=== PATIENT | female | born 1985 | race Two or more races ===

== ENCOUNTER 2017-04-19 00:34 | Emergency (ER) | payer MEDICAID, OTHER ==
[~2017-04-19] VITALS: Ht 157.5 cm; Wt 69.4 kg
[2017-04-19 00:58] VITALS: BP 113/84
[2017-04-19] MEDS ORDERED: KETOROLAC TROMETH 60MG/2ML VIAL IM ONE (02:15)
[2017-04-19] MEDS ORDERED: IBUPROFEN 600 MG TAB PO ONE (02:30)
[2017-04-19] MEDS ORDERED: CYCLOBENZAPRINE HCL 10 MG TAB PO ONE (02:30)
== END 2017-04-19 03:32 | disposition home or self-care (01) ==
LOC: ER 00:38
DX: S33.5XXA Sprain of ligaments of lumbar spine, initial encounter (principal); M79.1 Myalgia; X50.9XXA Other and unspecified overexertion or strenuous movements or postures, initial encounter; Y93.89 Activity, other specified; Y92.89 Other specified places as the place of occurrence of the external cause; Y99.8 Other external cause status
CPT/HCPCS: 72131; 81025; 96372

== ENCOUNTER 2017-05-14 02:57 | Emergency (ER) | payer OTHER ==
[~2017-05-14] VITALS: Ht 157.5 cm; Wt 70.8 kg
[2017-05-14] MEDS: LIDOCAINE VISCOUS 2% 15ML UD PO ONE (05:13)
[2017-05-14] MEDS: ALUM & MAG HYDROX-SIMETH LIQ(MAALOX) 30 ML PO ONE (05:13)
[2017-05-14] MEDS: DEXAMETHASONE 4 MG TAB PO ONE (05:13)
[2017-05-14] MEDS: FAMOTIDINE 20 MG TAB PO ONE (05:13)
[2017-05-14] MEDS: diphenhdrAMINE HCL 25 MG CAP PO ONE (05:13)
[2017-05-14 05:15] VITALS: BP 118/52
== END 2017-05-14 06:30 | disposition home or self-care (01) ==
LOC: ER 02:58
DX: T78.40XA Allergy, unspecified, initial encounter (principal); Y92.89 Other specified places as the place of occurrence of the external cause
CPT/HCPCS: 99284; J8540

== ENCOUNTER 2017-06-05 10:56 | Emergency (ER) | payer OTHER ==
[~2017-06-05] VITALS: Ht 157.5 cm; Wt 70.3 kg
[2017-06-05 12:07] VITALS: BP 123/75
== END 2017-06-05 14:47 | disposition home or self-care (01) ==
LOC: ER 10:56
DX: O23.41 Unspecified infection of urinary tract in pregnancy, first trimester (principal); Z3A.01 Less than 8 weeks gestation of pregnancy
CPT/HCPCS: 36415; 76801; 84702; 99285; J7030

== ENCOUNTER 2017-09-18 12:20 | Observation (INO) | payer OTHER | END 2017-09-18 13:40 | disposition home or self-care (01) | DRG 566 | LOC: LDRP 12:20 | PROVIDERS: ADMIT Obstetrics & Gynecology; ATTEND Obstetrics & Gynecology | DX: O26.892 Other specified pregnancy related conditions, second trimester (principal); R10.30 Lower abdominal pain, unspecified; Z3A.21 21 weeks gestation of pregnancy | CPT/HCPCS: 59025; 81002; G0378 ==

== ENCOUNTER 2020-07-16 04:34 | Emergency (ER) | payer MEDICAID, OTHER ==
[~2020-07-16] VITALS: Ht 160 cm; Wt 72.6 kg
[2020-07-16 04:36] VITALS: BP 114/83
== END 2020-07-16 06:28 | disposition left against medical advice (07) ==
LOC: ER 04:34
DX: R51.9 Headache, unspecified (principal); Z53.21 Procedure and treatment not carried out due to patient leaving prior to being seen by health care provider

== ENCOUNTER 2023-07-02 13:46 | Inpatient (IN) | payer MEDICAID ==
[~2023-07-02] VITALS: Ht 157.5 cm; Wt 69.0 kg
[2023-07-02 14:14] LABS: Basophils # (auto) 0 10 ^3/uL (0-0.2); Basophils % (auto) 0.6 % (0.0-2.0); Eosinophils # (auto) 0.1 10 ^3/uL (0-0.8); Eosinophils % (auto) 1.7 % (0.0-7.0); Hematocrit 37.2 % (36.0-46.0); Hemoglobin 12.6 g/dL (12.2-16.2); Lymphocytes # (auto) 1.6 10 ^3/uL (0.4-5.4); Lymphocytes % (auto) 26.7 % (10.0-50.0); Mean Corpuscular Hemoglobin 29.1 pg (28.0-32.0); Mean Corpuscular Hgb Conc. 33.8 g/dL (32.0-36.0); Mean Corpuscular Volume 86.3 fL (80.0-100.0); Monocytes # (auto) 0.4 10 ^3/uL (0-1.3); Monocytes % (auto) 6.1 % (0.0-12.0); Neutrophils # (auto) 3.9 10 ^3/uL (1.6-8.6); Neutrophils % (auto) 64.9 % (37.0-80.0); Nucleated Red Blood Cells % 0.1 %; Red Blood Cells 4.31 10^6/uL (4.0-5.20)
[2023-07-02] MEDS: ONDANSETRON ODT 4 MG TAB PO ONE (14:30)
[2023-07-02] MEDS: PANTOPRAZOLE 40 MG TAB PO ONE (14:30)
[2023-07-02 14:36] LABS: Alanine Aminotransferase 11 U/L (7-40); Albumin 4.4 g/dL (3.2-4.8); Alkaline Phosphatase 53 U/L (46-116); Anion Gap 3 (5-15); Aspartate Aminotransferase 13 U/L (13-40); BUN/Creatinine Ratio 14.9 (10.0-20.0); Bilirubin, Total 1.4 mg/dL (0.2-1.0); Blood Urea Nitrogen 11 mg/dL (9-23); Calcium 9.7 mg/dL (8.7-10.4); Carbon Dioxide 29 mmol/L (20-30); Chloride 105 mmol/L (98-107); Glucose 89 mg/dL (74-106); Lipase 31 U/L (12-53); Potassium 4.1 mmol/L (3.5-5.1); Sodium 137 mmol/L (136-145); Total Protein 7.5 g/dL (5.7-8.2)
[2023-07-02 15:16] LABS: Urine Bacteria FEW /hpf (None Seen); Urine Blood TRACE /uL (Negative); Urine Clarity Turbid (Clear); Urine Color Yellow (Yellow); Urine Mucus FEW (None Seen); Urine Protein, UAD 1+ (Negative); Urine Specific Gravity 1.029 (1.001-1.035); Urine Urobilinogen Normal (Negative); Urine WBC 44 /hpf (0 - 5)
[2023-07-02] MEDS: cefTRIAXone 1GM/50ML D5W 50 ML IV ONE (15:40)
[2023-07-02] MEDS ORDERED: HYDROmorphone HCL 2 MG/ML VL/or syr IV PRN (17:45)
[2023-07-02] MEDS: LACTATED RINGER'S 1,000 ML IV ONE (19:51)
[2023-07-02] MEDS: SODIUM CHLOR 0.9% PF (SALINE LOCK) 10ML VIAL/SYR IV SCH (22:00)
[2023-07-03] VITALS (10 sets, daily range): BP systolic 95–136; BP diastolic 54–77; PULSE 66–78; RESP 15–18; TEMP 97.9–98.4; O2SAT 96–100
[2023-07-03] MEDS ORDERED: LEVO100T8 PO (01:26)
[2023-07-03] MEDS: FAMOTIDINE (10MG/ML) 2ML VL IV SCH (09:23)
[2023-07-03] MEDS: ONDANSETRON HCL 4 MG/2 ML VIAL IV PRN (09:23)
[2023-07-03] MEDS: ENOXAPARIN SOD 40 MG/0.4 ML SYRINGE SC SCH (09:23)
[2023-07-03] MEDS: cefTRIAXone 1GM/50ML D5W 50 ML IV SCH (20:24)
[2023-07-03] MEDS: HYDROcodone-ACET 5/325MG TAB PO PRN (21:48)
[2023-07-04] VITALS (8 sets, daily range): BP systolic 92–105; BP diastolic 50–57; PULSE 61–82; RESP 15–19; TEMP 97.7–98.6; O2SAT 96–100
[2023-07-04] MEDS: LEVOTHYROXINE SODIUM 100 MCG TAB PO ONE (10:46)
[2023-07-04] MEDS ORDERED: metroNIDAZOLE 500MG/100ML 100 ML IV SCH (14:00)
[2023-07-04 16:26] LABS: INR 1.06 (0.9-1.15); Partial Thromboplastin Time 26.2 SEC (24.5-34.5); Prothrombin Time 11.2 sec (9.3-11.8)
[2023-07-04] MEDS: SODIUM CHLORIDE 0.9% 1,000 ML IV SCH (16:29)
[2023-07-04] MEDS: ACETAMINOPHEN 325 MG TAB PO PRN (20:44)
[2023-07-04] MEDS: metroNIDAZOLE 500 MG TAB PO SCH (22:31)
[2023-07-05 01:00] VITALS: BP 98/50; PULSE 68; RESP 20; TEMP 98.1; O2SAT 96
[2023-07-05 05:00] VITALS: BP 93/51; PULSE 65; RESP 18; TEMP 98.2; O2SAT 98
[2023-07-05] MEDS: LEVOTHYROXINE SODIUM 100 MCG TAB PO SCH (05:49)
[2023-07-05] MEDS: DOCUSATE SOD 100 MG CAP PO PRN (05:53)
[2023-07-05 06:36] LABS: Basophils # (auto) 0 10 ^3/uL (0-0.2); Basophils % (auto) 0.4 % (0.0-2.0); Eosinophils # (auto) 0.3 10 ^3/uL (0-0.8); Eosinophils % (auto) 4.1 % (0.0-7.0); Hematocrit 32.6 % (36.0-46.0); Hemoglobin 11.3 g/dL (12.2-16.2); Lymphocytes # (auto) 2.2 10 ^3/uL (0.4-5.4); Mean Corpuscular Hemoglobin 29.7 pg (28.0-32.0); Mean Corpuscular Hgb Conc. 34.8 g/dL (32.0-36.0); Mean Corpuscular Volume 85.5 fL (80.0-100.0); Monocytes # (auto) 0.5 10 ^3/uL (0-1.3); Monocytes % (auto) 7.7 % (0.0-12.0); Neutrophils # (auto) 3.3 10 ^3/uL (1.6-8.6); Neutrophils % (auto) 52.8 % (37.0-80.0); Red Blood Cells 3.81 10^6/uL (4.0-5.20); Red Cell Distribution Width 13.1 % (11.8-14.3); White Blood Cell 6.3 10^3/uL (4.4-10.8)
[2023-07-05 06:40] LABS: Alanine Aminotransferase 21 U/L (7-40); Alkaline Phosphatase 47 U/L (46-116); Anion Gap 4 (5-15); BUN/Creatinine Ratio 12.1 (10.0-20.0); Blood Urea Nitrogen 8 mg/dL (9-23); Carbon Dioxide 29 mmol/L (20-30); Chloride 107 mmol/L (98-107); Glucose 90 mg/dL (74-106); Sodium 140 mmol/L (136-145)
[2023-07-05 06:41] LABS: Albumin 3.7 g/dL (3.2-4.8)
[2023-07-05 06:42] LABS: Aspartate Aminotransferase 18 U/L (13-40); Bilirubin, Total 0.6 mg/dL (0.2-1.0); Total Protein 6.3 g/dL (5.7-8.2)
[2023-07-05 06:54] LABS: INR 1.06 (0.9-1.15); Partial Thromboplastin Time 26.3 SEC (24.5-34.5); Prothrombin Time 11.2 sec (9.3-11.8)
[2023-07-05 08:00] VITALS: RESP 19; O2SAT 97
[2023-07-05 09:00] VITALS: BP 100/51; PULSE 70; RESP 18; TEMP 97.6; O2SAT 97
[2023-07-05] MEDS ORDERED: PANT40TA2 PO (09:53)
[2023-07-05] MEDS ORDERED: LEVO500T91 PO (09:53)
[2023-07-05] MEDS ORDERED: MET500T PO (09:53)
== END 2023-07-05 13:00 | disposition home or self-care (01) ==
LOC: ER 13:46 → OVERFLOW 17:38 → CENTRAL 23:41
PROVIDERS: ADMIT Internal Medicine; ATTEND Internal Medicine
DX: K80.00 Calculus of gallbladder with acute cholecystitis without obstruction (principal); E03.9 Hypothyroidism, unspecified; N39.0 Urinary tract infection, site not specified; Z79.899 Other long term (current) drug therapy; Z83.3 Family history of diabetes mellitus; Z82.49 Family history of ischemic heart disease and other diseases of the circulatory system
CPT/HCPCS: 36415; 76705; 80053; 81001; 81025; 83690; 84443; 85025; 85610; 85730; 86850; 86900; 86901; 96365; G0378; J2405; J3490; Q0162

== ENCOUNTER 2024-01-21 15:12 | Emergency (ER) | payer MEDICAID ==
[~2024-01-21] VITALS: Ht 157.5 cm; Wt 72.8 kg
[~2024-01-21 15:12] MED LIST: LEVO100T8 PO; LEVO500T91 PO; MET500T PO; PANT40TA2 PO
[2024-01-21 16:27] VITALS: BP 128/75; PULSE 65; RESP 16; TEMP 98.4; O2SAT 100
--- NOTE | 2024-01-21 16:57 | ED.PDOC ---
HPI (NEURO) HPI Comments 38-year-old female with no pertinent past medical history, presents to ED for intermittent headaches x1 month, associated with light sensitivity, sound sensitivity, nausea. Patient reports that she has been getting the headaches two to 3 times a week. She states this this morning the headache was severe and she had to take five pills of ibuprofen, which resolved her symptoms. Patient states that the headache is generally on one side. She states that the pain was rated as 9/10 in severity this morning. Patient states that the headache is now coming back. She denies any recent trauma or injuries. Patient denies any neck pain, fever, chest pain, shortness of breath, numbness, tingling. Chief Complaint: Headache Time Seen by MD: 15:54 Primary Care Provider: DAVE Reviewed Notes: Nurses Notes, Medications, Allergies Mode of Arrival: Ambulatory Past Medical History PAST MEDICAL HISTORY: Thyroid Surgical History: Denies all surgeries PARTS ADVISOR History: No Pertinent PARTS ADVISOR History Family History Family History: Family hx of DM, Family hx of Cancer, Family hx of HTN Social History Smoker: Non-Smoker Alcohol: Denies ETOH Use Drugs: Denies Drug Use Lives In: Home Constitutional: denies: chills, diaphoresis, fatigue, fever, malaise, sweats, weakness, others EENTM: reports: photophobia; denies: blurred vision, double vision, ear bleeding, ear discharge, ear drainage, ear pain, ear ringing, eye pain, eye redness, hearing loss, mouth pain, mouth swelling, nasal discharge, nose bleeding, nose congestion, nose pain, tearing, throat pain, throat swelling, voice changes, others Respiratory: denies: cough, hemoptysis, orthopnea, SOB at rest, shortness of breath, SOB with excertion, stridor, wheezing, others Cardiovascular: denies: chest pain, dizzy spells, diaphoresis, Dyspnea on exertion, edema, irregular heart beat, left arm pain, lightheadedness, palpitations, PND, syncope, others Gastrointestinal: reports: nausea; denies: abdomen distended, abdominal pain, blood streaked bowels, constipated, diarrhea, dysphagia, difficulty swallowing, hematemesis, melena, poor appetite, poor fluid intake, rectal bleeding, rectal pain, vomiting, others Genitourinary: denies: abnormal vagina bleeding, burning, dyspareunia, dysuria, flank pain, frequency, hematuria, incontinence, pain, , vagina discharge, urgency, others Neurological: reports: headache; denies: dizziness, fainting, left sided numbness, left sided weakness, numbness, paresthesia, pre-existing deficit, right sided numbness, right sided weakness, seizure, speech problems, tingling, tremors, weakness, others Musculoskeletal: denies: back pain, gout, joint pain, joint swelling, muscle pain, muscle stiffness, neck pain, others Integumetry: denies: bruises, change in color, change in hair/nails, dryness, laceration, lesions, lumps, rash, wounds, others Hematologic/Lymphatic: denies: anemia, blood clots, easy bleeding, easy bruising, swollen glands, others Endocrine: denies: excessive hunger, excessive sweating, excessive thirst, excessive urination, flushing, intolerance to cold, intolerance to heat, unexplained weight gain, unexplained weight loss, others Psychiatric: denies: anxiety, bipolar disorder, depression, hopeless, panic disorder, schizophrenia, sleepless, suicidal, others All Other Systems: Reviewed and Negative Physical Exam General Appearance: No Apparent Distress, Normal HEENT: Normal ENT Inspection, Pharynx Normal, TMs Normal Neck: Full Range of Motion, Non-Tender, Normal, Normal Inspection Respiratory: Chest Non-Tender, Lungs Clear, No Accessory Muscle Use, No Respiratory Distress, Normal Breath Sounds Cardiovascular: No Edema, No JVD, No Murmur, No Gallop, Normal Peripheral Pulses, Regular Rate/Rhythm Breast Exam: Deferred Gastrointestinal: No Organomegaly, Non Tender, No Pulsatile Mass, Normal Bowel Sounds, Soft Genitalia: Deferred Pelvic: Deferred Rectal: Deferred Extremities: No calf tenderness, Normal capillary refill, Normal inspection, Normal range of motion, Non-tender, No pedal edema Musculoskeletal : Apperance: Normal Neurologic: Alert, medical pathologist II-XII nml as Tested, No Motor Deficits, Normal Affect, Normal Mood, No Sensory Deficits, Other (5/5 strength in bilateral upper and lower extremities. Negative facial droop. Negative pronator drift.) Cerebellar Function: Normal Reflexes: Normal Skin: Dry, Normal Color, Warm Lymphatic: No Adenopathy Was a procedure done? Was a procedure done?: No Differential Diagnosis (SZ) Headache: Cluster, Migraine, Closed Head Injury, CVA, Epidural Hemorrhage, Intracerebral Hemorrhage, Subarachnoid Hemorrhage, Subdural Hemorrhage, Meningitis, Trigeminal Neuralgia X-Ray, Labs, Meds, VS Vital Signs Date Time Temp Pulse Resp B/P (MAP) Pulse Ox O2 Delivery O2 Flow Rate FiO2 01/21/24 16:27 65 16 100 Room Air 01/21/24 16:27 98.4 65 16 128/75 (92) 100 98.4 01/21/24 15:35 98.4 65 16 128/75 (92) 100 X-Ray, Labs, Meds, VS Comment MDM: Patient with history as above presented with headache. History obtained from patient. Patient was nontoxic, stable, afebrile, ambulatory, no acute distress. Exam as above.\Reviewed external records. All findings were discussed with the patient. Differential diagnosis considered. Overall presentation is consistent with migraine headache. Low suspicion for meningitis, TBI, intracranial bleed, CVA. Patient was treated with Toradol with improvement in symptoms. Patient was reevaluated and vital signs were reviewed. Consideration was given for admission, but the patient was stable for outpatient management. Disposition: Discussed the need to follow up diagnostics, including incidental findings. Discharged the patient with instructions to obtain outpatient follow up in 1-2 days of today's symptoms and findings, with strict return precautions if patient develops new or worsening symptoms. This medical document was created using the [employer] dictation system. Although this document has been carefully reviewed, there may still be some phonetic and typographical errors, which are due to imperfections of the software program, and do not reflect any compromise in the patient's medical care. Time of 1ST Reevaluation: 16:56 Reevaluation 1ST: Improved Patient Education/Counseling: Diagnosis, Treatment, Prognosis, Need For Follow Up Family Education/Counseling: No Family Present Departure 1 Departure Time of Disposition: 16:56 Impression: Primary Impression: Migraine headache Qualified Codes: G43.909 - Migraine, unspecified, not intractable, without status migrainosus Disposition: 01 HOME / SELF CARE / HOMELESS Condition: Fair Critical Care Note Critical Care Time?: No Stability Stability form required: No Heart Score Heart Score: Heart Score Response (Comments) Value History N/A 0 EKG N/A 0 Age N/A 0 Risk Factors N/A 0 Troponin N/A 0 Total 0 DONNIE CHRISTY PAC Jan 21, 2024 16:57
[2024-01-21] MEDS: KETOROLAC TROMETH 30 MG/ML 1ML VIAL IM ONE (16:59)
== END 2024-01-21 17:00 | disposition home or self-care (01) ==
LOC: ER 15:12
DX: G43.809 Other migraine, not intractable, without status migrainosus (principal); E03.9 Hypothyroidism, unspecified
CPT/HCPCS: 96372; 99283; J1885